=== PATIENT | female | born 1980 | race African-American/Black ===

== ENCOUNTER 2018-10-22 18:50 | Emergency (ER) | payer OTHER, MEDICAID ==
[~2018-10-22] VITALS: Ht 175.3 cm; Wt 114.8 kg
--- NOTE | 2018-10-22 19:13 | NUR ---
patient BIBRA from home, c/o abd pain, connected to the monitor and pulse ox. Dr. Galvez at bedside for eval. IV access initiated on the left hand g20. Kept comfortable, will continue to monitor accordingly. Blood drawned and sent to lab.
[2018-10-22] MEDS ORDERED: MORPHINE SULFATE INJ 4 MG/ML DISP.SYRIN ONE (19:23)
[2018-10-22] MEDS ORDERED: ONDANSETRON HCL/PF 4 MG/2 ML VIAL ONE (19:23)
--- NOTE | 2018-10-22 19:26 | NUR ---
reported feeling better than when she came in. nad. will cont to monitor
[2018-10-22 19:28] LABS: BASOPHILS # (AUTO) 0.1 /CMM (0.0-0.2); BASOPHILS % (AUTO) 0.9 % (0.0-2.0); EOSINOPHILS % (AUTO) 3.3 % (0.0-6.0); HEMATOCRIT 40 % (33-45); HEMOGLOBIN 13.2 g/dL (11.5-14.8); LYMPHOCYTES # (AUTO) 3.7 /CMM (0.8-4.8); LYMPHOCYTES % (AUTO) 30.7 % (20.0-44.0); MEAN CORPUSCULAR HGB CONC 34 g/dl (31.0-36.0); MEAN CORPUSCULAR VOLUME 78 fL (82-100); MONOCYTES # (AUTO) 0.8 /CMM (0.1-1.30); MONOCYTES % (AUTO) 6.3 % (2.0-12.0); NEUTROPHILS % (AUTO) 58.8 % (43.0-81.0); PLATELET COUNT (AUTO) 334 /CMM (150-450); RED BLOOD CELL COUNT(AUTO) 5.03 MIL/uL (4.0-5.2)
[2018-10-22] MEDS ORDERED: IV NS 0.9% 1,000 ML BAG IV ONE (19:30)
[2018-10-22] MEDS ORDERED: MORPHINE SULFATE INJ 2 MG/ML DISP.SYRIN IV ONE (19:30)
[2018-10-22] MEDS ORDERED: ONDANSETRON HCL/PF 4 MG/2 ML VIAL IVP ONE (19:30)
[2018-10-22 19:35] LABS: CALCIUM, SERUM 8.3 mg/dL (8.5-10.1); CREATININE 0.8 mg/dL (0.6-1.3); POTASSIUM 3.6 mmol/L (3.5-5.1)
[2018-10-22 19:42] LABS: APPEARANCE,URINE Clear (CLEAR); BILIRUBIN,URINE SMALL (NEGATIVE); BLOOD, URINE Negative Ery/uL (NEGATIVE); COLOR,URINE Yellow (YELLOW); KETONES,URINE Negative (NEGATIVE); LEUKOCYTE ESTERASE ,URINE Negative (NEGATIVE); NITRITE, URINE Negative (NEGATIVE); PH,URINE 6.5 (5.0-8.0); PROTEIN,URINE 30 mg/dl (NEGATIVE); UGLUCOSE Negative (NEGATIVE); UROBILINOGEN,URINE 0.2 EU/dL (0.2)
[2018-10-22 19:43] LABS: ALBUMIN 3.3 g/dL (3.4-5.0); BILIRUBIN,DIRECT 0.2 mg/dL (0.0-0.2); BILIRUBIN,TOTAL 0.6 mg/dL (0.2-1.0); TOTAL PROTEIN, SERUM 7.5 g/dL (6.4-8.2)
[2018-10-22 19:55] LABS: BACTERIA,URINE Rare /HPF (None Seen); RBC,URINE 0-2 /HPF (0-2); SQUAMOUS EPITHELIAL CELL,UR Rare /HPF (None Seen)
[2018-10-22 19:56] LABS: WBC,URINE 0-2 /HPF (0-3)
--- NOTE | 2018-10-22 20:43 | NUR ---
Patient discharged to home in stable condition. Written and verbal after care instructions given. Patient verbalizes understanding of instruction. ADVISED NOT TO DRIVE. STEDAY GATE NOTED
[2018-10-22 20:49] VITALS: BP 151/98
== END 2018-10-22 20:51 | disposition home or self-care (01) ==
LOC: ER 18:59
DX: K80.50 Calculus of bile duct without cholangitis or cholecystitis without obstruction (principal); E66.9 Obesity, unspecified; Z91.040 Latex allergy status; Z90.49 Acquired absence of other specified parts of digestive tract; Z60.2 Problems related to living alone
CPT/HCPCS: 36415; 80048; 80076; 81001; 83690; 84703; 85025; 96374; 96375; 99283; A6402; A6403; J2270; J2405; J7030; 81000-TC

== ENCOUNTER 2019-07-01 23:17 | Emergency (ER) | payer OTHER, MEDICAID ==
[~2019-07-01] VITALS: Ht 175.3 cm; Wt 127.0 kg
[2019-07-01 23:17] VITALS: BP 142/95
--- NOTE | 2019-07-01 23:20 | NUR ---
PT CAME INTO THE ED C/O ANXIETY/ PANIC ATTACK WHICH STARTED TODAY. PT AAOX4, AMBULATORY, NO ACUTE DISTRESS NOTED. PT CONNECTED TO THE PORTABLE TRACK CREW CHIEF AND POX
--- NOTE | 2019-07-02 00:22 | NUR ---
Patient discharged to home in stable condition. Written and verbal after care instructions given. Patient verbalizes understanding of instruction.
== END 2019-07-02 00:22 | disposition home or self-care (01) ==
LOC: ER 23:17
DX: F41.9 Anxiety disorder, unspecified (principal); Z60.2 Problems related to living alone; Z91.040 Latex allergy status